=== PATIENT | female | born 1965 | race Caucasian/White ===

== ENCOUNTER 2019-02-12 12:41 | Emergency (ER) | payer BC, OTHER ==
[~2019-02-12] VITALS: Ht 175.3 cm; Wt 138.3 kg
[~2019-02-12 12:41] MED LIST: ACET500 PO; AMBIEN CR; ATEN50 PO; BRINTELLIX20 MG PO; BUPR100ER PO; CLON2 PO; CYCL10 PO; DILT180 PO; Estradiol1 MG PO; FLUO20; HYDROCHLOROTHIAZIDE; IBUP800; LEVA1.25 INH; LITH300C PO; MONT10T PO; NAPR550 PO; NUVIGIL250 MG PO; OXYACE5T PO; Omeprazole20 M1; PROPANOLOL; Robaxin500 MG PO; SERT100 PO; [UNRECOGNIZED DRUG - OTHER]
[2019-02-12] MEDS ORDERED: Percocet 5-3251 EACH PO (14:23)
[2019-02-12] MEDS ORDERED: Crutch1 EACH MISC (14:23)
== END 2019-02-12 14:41 | disposition home or self-care (01) ==
LOC: ER 12:41
DX: S82.62XA Displaced fracture of lateral malleolus of left fibula, initial encounter for closed fracture (principal); I10 Essential (primary) hypertension; Z88.0 Allergy status to penicillin; Z88.5 Allergy status to narcotic agent; Z79.899 Other long term (current) drug therapy; X50.1XXA Overexertion from prolonged static or awkward postures, initial encounter
CPT/HCPCS: 29505; 73610; 99283-25; A9270-GY

== ENCOUNTER 2020-08-27 20:41 | Emergency (ER) | payer BC ==
[~2020-08-27] VITALS: Ht 177.8 cm; Wt 131.5 kg
[~2020-08-27 20:41] MED LIST changes: +Crutch1 EACH MISC; +Percocet 5-3251 EACH PO
[2020-08-27 22:13] LABS: Source, Urine Clean Catch
[2020-08-27 22:17] LABS: Appearance, Urine Clear (Clear); Bilirubin, Urine Neg (Neg); Blood, Urine Neg (Neg); Color, Urine Amber (P-Yellow); Glucose Qualitative, Urine Neg (Neg); Ketones, Urine 4+ (Neg); Leukocyte Esterase, Urine 1+ (Neg); Nitrite, Urine Neg (Neg); Protein, Urine 2+ (Neg); Specific Gravity, Urine 1.015 (1.003-1.022); Urobilinogen, Urine 2+ (Normal)
[2020-08-27 22:23] LABS: Bacteria Many /hpf; Mucus Mod (0-Heavy); Squamous Epithelial Cells Few /hpf (Few)
[2020-08-27 22:25] LABS: BASOPHILS ABSOLUTE AUTO 0.03 K/mm3 (0.00-0.23); BASOPHILS PERCENT AUTO 0 % (0-2); EOSINOPHILS ABSOLUTE AUTO 0.02 K/mm3 (0.00-0.68); EOSINOPHILS PERCENT AUTO 0 % (0-6); Hematocrit 49.6 % (33.0-51.0); Hemoglobin 16.4 g/dL (11.5-16.0); IMMATURE GRAN ABSOLUTE AUTO 0.04 K/mm3 (0.00-0.10); IMMATURE GRAN PERCENT AUTO 0 % (0-1); LYMPHOCYTES ABSOLUTE AUTO 0.96 K/mm3 (0.84-5.20); LYMPHOCYTES PERCENT AUTO 8 % (21-46); MONOCYTES ABSOLUTE AUTO 0.55 K/mm3 (0.16-1.47); MONOCYTES PERCENT AUTO 5 % (4-13); Mean Corpuscular HGB 31.7 pg (26.0-34.0); Mean Corpuscular HGB Conc 33.1 g/dL (31.5-36.5); Mean Corpuscular Volume 96 fL (80-100); Mean Platelet Volume 11.4 fL (9.1-12.4); NEUTROPHILS ABSOLUTE AUTO 10.67 K/mm3 (1.96-9.15); NEUTROPHILS PERCENT AUTO 87 % (41-73); Platelet Count 273 K/mm3 (150-400); RDW Coefficient Variation 12.5 % (11.7-14.2); RDW Standard Deviation 44.5 fL (35.1-46.3); Red Blood Cell Count 5.18 M/mm3 (3.80-5.20); White Blood Cell Count 12.27 K/mm3 (4.00-11.30)
[2020-08-27 22:47] LABS: Alanine Aminotransfer (ALT/SGP 43 U/L (12-78); Albumin, Blood 4.1 g/dL (3.4-5.0); Albumin/Globulin Ratio 1.1 (0.8-1.8); Alk Phos 50 U/L (50-136); Anion Gap 6 mmol/L (6-16); Aspartate Aminotrans (AST/SGOT 18 U/L (12-37); Bilirubin, Total 0.6 mg/dL (0.1-1.0); Blood Urea Nitrogen 22 mg/dL (8-24); Bun/Creatinine Ratio 27.7 (12.0-20.0); CO2, Blood 29 mmol/L (21-32); Calcium, Blood 10.1 mg/dL (8.5-10.1); Chloride, Blood 103 mmol/L (98-108); Globulin, Blood 3.8 g/dL (2.2-4.0); Glomerular Filtration Rate >60 (60-); Glucose, Blood 160 mg/dL (70-99); Potassium, Blood 3.4 mmol/L (3.5-5.5); Sodium, Blood 138 mmol/L (136-145); Total Protein, Blood 7.9 g/dL (6.4-8.2)
[2020-08-28] MEDS ORDERED: ONDA4ODT MM (00:57)
== END 2020-08-28 01:30 | disposition home or self-care (01) ==
LOC: ER 20:41
PROVIDERS: Emergency Medicine
DX: K52.9 Noninfective gastroenteritis and colitis, unspecified (principal); I10 Essential (primary) hypertension; Z80.0 Family history of malignant neoplasm of digestive organs; Z88.5 Allergy status to narcotic agent; Z79.899 Other long term (current) drug therapy; Z88.0 Allergy status to penicillin; Z87.891 Personal history of nicotine dependence
CPT/HCPCS: 36415; 74177; 80053; 81001; 83690; 85025; 87086; 96374-59; 96375; 96376; 99285-25; A9270; J2270; J2405; Q9967

== ENCOUNTER 2023-02-14 14:08 | Emergency (ER) | payer OTHER ==
[~2023-02-14] VITALS: Ht 177.8 cm; Wt 140.6 kg
[~2023-02-14 14:08] MED LIST changes: +ONDA4ODT MM
[2023-02-14 14:55] LABS: BASOPHILS ABSOLUTE AUTO 0.03 K/mm3 (0.00-0.23); BASOPHILS PERCENT AUTO 0 % (0-2); EOSINOPHILS PERCENT AUTO 0 % (0-6); Hematocrit 37.8 % (33.0-51.0); Hemoglobin 12.5 g/dL (11.5-16.0); IMMATURE GRAN ABSOLUTE AUTO 0.04 K/mm3 (0.00-0.10); IMMATURE GRAN PERCENT AUTO 0 % (0-1); LYMPHOCYTES ABSOLUTE AUTO 1.35 K/mm3 (0.84-5.20); LYMPHOCYTES PERCENT AUTO 10 % (21-46); MONOCYTES ABSOLUTE AUTO 0.26 K/mm3 (0.16-1.47); MONOCYTES PERCENT AUTO 2 % (4-13); Mean Corpuscular HGB 32.3 pg (26.0-34.0); Mean Corpuscular HGB Conc 33.1 g/dL (31.5-36.5); Mean Corpuscular Volume 98 fL (80-100); Mean Platelet Volume 10.5 fL (9.1-12.4); NEUTROPHILS ABSOLUTE AUTO 12.02 K/mm3 (1.96-9.15); NEUTROPHILS PERCENT AUTO 88 % (41-73); Platelet Count 432 K/mm3 (150-400); RDW Coefficient Variation 12.5 % (11.7-14.2); RDW Standard Deviation 45.1 fL (35.1-46.3); Red Blood Cell Count 3.87 M/mm3 (3.80-5.20)
[2023-02-14 15:06] LABS: Albumin, Blood 2.6 g/dL (3.4-5.0); Albumin/Globulin Ratio 0.6 (0.8-1.8); Bilirubin, Total 0.7 mg/dL (0.1-1.0); Bun/Creatinine Ratio 13.5 (12.0-20.0); Calcium, Blood 8.8 mg/dL (8.5-10.1); Creatinine, Blood 0.67 mg/dL (0.40-1.00); Globulin, Blood 4.7 g/dL (2.2-4.0); Potassium, Blood 2.9 mmol/L (3.5-5.5); Total Protein, Blood 7.3 g/dL (6.4-8.2)
[2023-02-14 16:29] LABS: Influenza A, PCR NEGATIVE (NEGATIVE); Influenza B, PCR NEGATIVE (NEGATIVE); Resp Syncytial Virus, PCR NEGATIVE (NEGATIVE); SARS-Cov-2 (COVID-19) PCR, MMC NEGATIVE (NEGATIVE)
[2023-02-14 16:41] LABS: Source, Urine Clean Catch
[2023-02-14 17:28] LABS: Appearance, Urine Clear (Clear); Bilirubin, Urine Neg (Neg); Blood, Urine Neg (Neg); Color, Urine Yellow (P-Yellow); Glucose Qualitative, Urine Neg (Neg); Ketones, Urine Neg (Neg); Leukocyte Esterase, Urine Neg (Neg); Nitrite, Urine Neg (Neg); Protein, Urine 1+ (Neg); Urobilinogen, Urine NORM (Normal)
[2023-02-14] MEDS ORDERED: ONDA4ODT MM (18:07)
[2023-02-14 20:54] VITALS: BP 137/72
== END 2023-02-14 20:56 | disposition home or self-care (01) ==
LOC: ER 14:08
PROVIDERS: Emergency Medicine; Student in an Organized Health Care Education/Training Program
DX: R68.89 Other general symptoms and signs (principal); R68.83 Chills (without fever); I10 Essential (primary) hypertension; Z87.891 Personal history of nicotine dependence; Z88.0 Allergy status to penicillin; Z88.5 Allergy status to narcotic agent; Z79.899 Other long term (current) drug therapy
CPT/HCPCS: 0241U; 71045; 80053; 82947; 83605; 85025; 87040; 87184; 93005; 93010; 96360; 99284-25; A9270; J7030

== ENCOUNTER → 2023-03-18 | Outpatient (CLI) | payer OTHER ==
[~2023-03-18] MED LIST changes: +ZOLP12.5 PO
[2023-03-19 12:36] LABS: Adenovirus F 40/41 Not Detected (NOT DETECT); Astrovirus Not Detected (NOT DETECT); Campylobacter Sp Not Detected (NOT DETECT); Cryptosporidium Not Detected (NOT DETECT); Cyclospora Cayetanensis Not Detected (NOT DETECT); E. Coli O157 Not Detected (NOT DETECT); Entamoeba Histolytica Not Detected (NOT DETECT); Enteroaggregative E. coli-EAEC Not Detected (NOT DETECT); Enteropathogenic E. coli-EPEC Not Detected (NOT DETECT); Enterotoxigenic E. coli-ETEC Not Detected (NOT DETECT); Giardia Lamblia Not Detected (NOT DETECT); Norovirus GI/GII Not Detected (NOT DETECT); Plesiomonas Shigelloides Not Detected (NOT DETECT); Rotavirus A Not Detected (NOT DETECT); Salmonella Sp Not Detected (NOT DETECT); Sapovirus Not Detected (NOT DETECT); Shiga Toxin-prod E. coli-STEC Not Detected (NOT DETECT); Shigella/Enteroin E. coli-EIEC Not Detected (NOT DETECT); Vibrio Cholerae Not Detected (NOT DETECT); Vibrio Sp Not Detected (NOT DETECT); Yersinia Enterocolitica Not Detected (NOT DETECT)
== END ==
LOC: LAB 09:48 → LAB SHORT 09:48
PROVIDERS: Physician Assistant
DX: R19.7 Diarrhea, unspecified (principal)
CPT/HCPCS: 87507

== ENCOUNTER 2023-03-19 11:10 | Inpatient (IN) | payer OTHER ==
[2023-03-19] VITALS (21 sets, daily range): BP systolic 116–186; BP diastolic 58–144
[~2023-03-19] VITALS: Ht 177.8 cm; Wt 131.7 kg
[~2023-03-19 11:10] MED LIST changes: -ZOLP12.5 PO
[2023-03-19 11:55] LABS: BASOPHILS ABSOLUTE AUTO 0.03 K/mm3 (0.00-0.23); BASOPHILS PERCENT AUTO 0 % (0-2); EOSINOPHILS ABSOLUTE AUTO 0.05 K/mm3 (0.00-0.68); EOSINOPHILS PERCENT AUTO 1 % (0-6); Hematocrit 33.5 % (33.0-51.0); Hemoglobin 10.6 g/dL (11.5-16.0); IMMATURE GRAN ABSOLUTE AUTO 0.06 K/mm3 (0.00-0.10); IMMATURE GRAN PERCENT AUTO 1 % (0-1); LYMPHOCYTES ABSOLUTE AUTO 1.17 K/mm3 (0.84-5.20); LYMPHOCYTES PERCENT AUTO 13 % (21-46); MONOCYTES ABSOLUTE AUTO 0.92 K/mm3 (0.16-1.47); MONOCYTES PERCENT AUTO 10 % (4-13); Mean Corpuscular HGB 30.2 pg (26.0-34.0); Mean Corpuscular HGB Conc 31.6 g/dL (31.5-36.5); Mean Corpuscular Volume 95 fL (80-100); Mean Platelet Volume 10.5 fL (9.1-12.4); NEUTROPHILS ABSOLUTE AUTO 6.91 K/mm3 (1.96-9.15); NEUTROPHILS PERCENT AUTO 76 % (41-73); Platelet Count 407 K/mm3 (150-400); RDW Coefficient Variation 12.7 % (11.7-14.2); Red Blood Cell Count 3.51 M/mm3 (3.80-5.20); White Blood Cell Count 9.14 K/mm3 (4.00-11.30)
[2023-03-19 12:18] LABS: Albumin, Blood 2.5 g/dL (3.4-5.0); Albumin/Globulin Ratio 0.5 (0.8-1.8); Bilirubin, Total 0.6 mg/dL (0.1-1.0); Bun/Creatinine Ratio 16.9 (12.0-20.0); Calcium, Blood 9.2 mg/dL (8.5-10.1); Creatinine, Blood 0.53 mg/dL (0.40-1.00); Globulin, Blood 4.7 g/dL (2.2-4.0); Potassium, Blood 3.4 mmol/L (3.5-5.5); Total Protein, Blood 7.2 g/dL (6.4-8.2)
[2023-03-19 14:02] LABS: Source, Urine Clean Catch
[2023-03-19 14:23] LABS: Appearance, Urine Clear (Clear); Bilirubin, Urine Neg (Neg); Blood, Urine 1+ (Neg); Color, Urine Yellow (P-Yellow); Glucose Qualitative, Urine Neg (Neg); Ketones, Urine 1+ (Neg); Leukocyte Esterase, Urine Neg (Neg); Nitrite, Urine Neg (Neg); Protein, Urine 2+ (Neg); Urobilinogen, Urine NORM (Normal)
[2023-03-19 15:02] LABS: Amorphous Light (0-Heavy); Bacteria Mod /hpf; Red Blood Cells, Urine 0-2 /hpf (0-2); Squamous Epithelial Cells Rare /hpf (Few); White Blood Cells, Urine 0-2 /hpf (0-5)
--- NOTE | 2023-03-19 16:18 | NUR ---
PATIENT ARRIVED FROM ER TODAY. SHE IS A&OX4. SBP IS ELEVATED BUT OTHERWISE VS ARE WNL. PATIENT REPORTS A 5/10 PAIN AT THIS TIME. HER RLQ ABD IS TENDER TO PALPATE. SHE DENIES NAUSEA OR VOMITING AT THIS TIME. PATIENT WAS ABLE TO STAND AND TRANSFER FROM THE GURNEY TO THE BED A SBA. PATIENT IS NPO SINCE SHE WILL HAVE SURGERY TONIGHT WITH DR. VELAZQUEZ. SHE IS CURRENTLY LAYING IN BED WITH CALL LIGHT IN REACH.
[2023-03-19] MEDS ORDERED: ZOLP12.5 PO (16:59)
[2023-03-20 01:04] VITALS: BP 146/86
[2023-03-20 02:02] VITALS: BP 130/67
[2023-03-20 03:51] VITALS: BP 121/66
[2023-03-20 05:46] LABS: Hematocrit 31.4 % (33.0-51.0); Hemoglobin 10.3 g/dL (11.5-16.0); Mean Corpuscular HGB 30.4 pg (26.0-34.0); Mean Corpuscular HGB Conc 32.8 g/dL (31.5-36.5); Mean Corpuscular Volume 93 fL (80-100); RDW Coefficient Variation 13.2 % (11.7-14.2); RDW Standard Deviation 45.1 fL (35.1-46.3); Red Blood Cell Count 3.39 M/mm3 (3.80-5.20); White Blood Cell Count 16.93 K/mm3 (4.00-11.30)
[2023-03-20 06:00] LABS: BAND PERCENT MAN 17 % (0-8); BASOPHILS PERCENT MAN 0 % (0-2); EOSINOPHILS PERCENT MAN 0 % (0-6); LYMPHOCYTES PERCENT MAN 3 % (21-46); MONOCYTES ABSOLUTE MAN 1.52 K/mm3 (0.16-1.47); MONOCYTES PERCENT MAN 9 % (4-13); NEUTROPHILS ABSOLUTE MAN 14.89 K/mm3 (1.96-9.15); SEG NEUTROPHILS PERCENT MAN 71 % (41-73); TOTAL CELLS COUNTED 100
[2023-03-20 06:01] LABS: Mean Platelet Volume 10.9 fL (9.1-12.4); Platelet Count 354 K/mm3 (150-400)
[2023-03-20 06:07] LABS: Albumin, Blood 1.9 g/dL (3.4-5.0); Albumin/Globulin Ratio 0.4 (0.8-1.8); Bilirubin, Total 1.5 mg/dL (0.1-1.0); Bun/Creatinine Ratio 16.3 (12.0-20.0); Calcium, Blood 7.8 mg/dL (8.5-10.1); Creatinine, Blood 0.62 mg/dL (0.40-1.00); Globulin, Blood 4.3 g/dL (2.2-4.0); Potassium, Blood 3.7 mmol/L (3.5-5.5); Total Protein, Blood 6.2 g/dL (6.4-8.2)
--- NOTE | 2023-03-20 06:53 | NUR ---
SHIFT SUMMARY PT IS POD#1 FROM A LAPAROSCOPIC CHOLECYSTECTOMY THAT PROGRESSED TO AN OPEN CHOLECYSTECTOMY DUE TO THE PT HAVING A GANGRENOUS GALLBLADDER. TWO PAOLA DRAINS WERE PLACED TO THE RIGHT OF THE PT'S UMBILICUS AND A REEMA DRESSING WAS PLACED ON THE DIAGONAL INCISION ON THE PT'S ABDOMEN. PT'S VITAL SIGNS HAVE BEEN STABLE THROUGHOUT THE SHIFT AND HER PAIN HAS BEEN CONTROLLED VIA THE EMAR. PT HAS BEEN UP AND WAS ABLE TO VOID AT THE BEDSIDE COMMODE WITHOUT INCIDENT. NEW IV PLACED BY PCU CN IN THE PT'S LEFT FOREARM DUE TO BOTH HER BILATERAL AC IV'S BLOWING. ALL PT INCISION ARE C/D/I AND THE REEMA DRAIN IS WORKING PROPERLY AT THIS TIME. BED IS IN LOWEST POSITION, CALL LIGHT IS WITHIN REACH.
[2023-03-20 07:19] VITALS: BP 105/66
[2023-03-20 15:51] VITALS: BP 114/68
--- NOTE | 2023-03-20 18:53 | NUR ---
SHIFT SUMMARY POD1 LAP TO OPEN ARIC, Bhupinder/OX4, VSS, TOLERATING PO THOUGH SHE HAS HAD A POOR APPETITE TODAY, SHE REPORTS FEELING WEAK AND THAT SHE DOESN'T FEEL LIKE SHE SI ABLE TO WALK VERY FAR, USEING BSC. IV ABX INFUSING ORDERED. IV DRESSING CHANGED 2X THIS SHIFT DUE TO IT PEELING UP. NO ACUTE EVENTS THIS SHIFT, CALL LIGHT IN REACH.
[2023-03-20 19:37] VITALS: BP 149/75
[2023-03-21 03:25] VITALS: BP 150/75
[2023-03-21 07:18] VITALS: BP 146/82
--- NOTE | 2023-03-21 07:25 | NUR ---
SHIFT SUMMARY NOC. PT A/O X4. PT MEDICATED FOR PAIN X2 WITH RELIEF. LAP SITES X3 WITH 2 PAOLA DRAINS ARE C/D/I. PRODUCED 105 ML OF S/S DRAINAGE. PT VOIDING URINE. PT RESTED WITH EYES CLOSED AND CALL LIGHT IN REACH.
[2023-03-21 15:02] VITALS: BP 143/78
--- NOTE | 2023-03-21 19:04 | NUR ---
SHIFT SUMMARY POD2 LAP TO OPEN Bhupinder CORBETT/ALEK4, VSS, TOLERATING PO BUT SHE HAS BEEN HAVING POOR INTAKE, PAIN MANAGED PER EMAR, SHE SPENT SOME TIME UP TO THE CHAIR TODAY FOR BREAKFAST AND LUNCH BUT HAS NOT BEEN AMBULATING OUTSIDE OF STAND PIVOT TRANSFERS. NO ACUTE EVENTS THIS SHIFT, CALL LIGHT IN REACH.
[2023-03-21 19:37] VITALS: BP 138/79
--- NOTE | 2023-03-22 04:42 | NUR ---
SHIFT SUMMARY NOC. PT POD 3 FOR GANGRENOUS CHOLECYSTITIS. PT A/O X4 AND AMBULATED TO BEDSIDE COMMODE THIS SHIFT TO VOID URINE. PT REPORTED PASSING GAS THIS SHIFT. PT MEDICATED FOR PAIN X2 WITH RELIEF OF SX. PT MEDICATED FOR SLEEP WITH AMBIEN. LAP SITES X3 WITH 2 PAOLA DRAINS ARE C/D/I. PAOLA DRAINS PRODUCING SEROSANGUINOUS DRAINAGE. ABDOMINAL REEMA DRESSING IS COMPRESSED AND C/D/I. PT RESTED WITH EYES CLOSED AND CALL LIGHT IN REACH.
[2023-03-22 04:52] VITALS: BP 118/69
[2023-03-22 05:48] LABS: BASOPHILS ABSOLUTE AUTO 0.03 K/mm3 (0.00-0.23); BASOPHILS PERCENT AUTO 0 % (0-2); EOSINOPHILS ABSOLUTE AUTO 0.31 K/mm3 (0.00-0.68); EOSINOPHILS PERCENT AUTO 2 % (0-6); Hematocrit 25.9 % (33.0-51.0); Hemoglobin 7.9 g/dL (11.5-16.0); IMMATURE GRAN ABSOLUTE AUTO 0.09 K/mm3 (0.00-0.10); IMMATURE GRAN PERCENT AUTO 1 % (0-1); LYMPHOCYTES ABSOLUTE AUTO 1.38 K/mm3 (0.84-5.20); LYMPHOCYTES PERCENT AUTO 11 % (21-46); MONOCYTES ABSOLUTE AUTO 0.76 K/mm3 (0.16-1.47); MONOCYTES PERCENT AUTO 6 % (4-13); Mean Corpuscular HGB Conc 30.5 g/dL (31.5-36.5); Mean Platelet Volume 10.9 fL (9.1-12.4); NEUTROPHILS ABSOLUTE AUTO 10.48 K/mm3 (1.96-9.15); NEUTROPHILS PERCENT AUTO 80 % (41-73); Platelet Count 352 K/mm3 (150-400); RDW Coefficient Variation 13.2 % (11.7-14.2); Red Blood Cell Count 2.63 M/mm3 (3.80-5.20); White Blood Cell Count 13.05 K/mm3 (4.00-11.30)
[2023-03-22 06:24] LABS: Mean Corpuscular Volume 99 fL (80-100)
[2023-03-22 06:27] LABS: Albumin, Blood 1.6 g/dL (3.4-5.0); Albumin/Globulin Ratio 0.4 (0.8-1.8); Bilirubin, Total 0.3 mg/dL (0.1-1.0); Bun/Creatinine Ratio 9.2 (12.0-20.0); Calcium, Blood 8.3 mg/dL (8.5-10.1); Creatinine, Blood 0.55 mg/dL (0.40-1.00); Potassium, Blood 3.4 mmol/L (3.5-5.5); Total Protein, Blood 5.6 g/dL (6.4-8.2)
[2023-03-22 08:07] VITALS: BP 131/86
--- NOTE | 2023-03-22 11:33 | NUR ---
DR VELAZQUEZ IN TO SEE PT.
[2023-03-22 16:02] VITALS: BP 139/84
--- NOTE | 2023-03-22 16:55 | NUR ---
summary NO ACUTE CHANGES THIS SHIFT. PT SAT UP IN CHAIR PERIODICALLY T/O DAY. PT WEAK, WORKED WITH PT THIS AFTERNOON. GETS UP WITH 1 PERSON ASSIST TO CHAIR AND BSC. WEANED OFF 02 THIS AFTERNOON, GAVE PT IS AND INSTRUCTED ON USE EARLIER IN SHIFT. PT USES CALL LIGHT APPROPRIATELY/CALL LIGHT IN REACH.
[2023-03-22 19:35] VITALS: BP 157/78
[2023-03-23 03:30] VITALS: BP 151/92
--- NOTE | 2023-03-23 04:16 | NUR ---
SHIFT SUMMARY PT RESTED WELL T/O NIGHT. INDEP TO BSC. REEMA DRESSING TO ABD REMAINS CDI AND COMPRESSED. PAOLA DRAIN #1 WITH MORE OUTPUT THAN #2. BOTH DARK GREEN IN APPEARANCE. PT REPORTS FLATUS. DENIES N/V. MEDICATED FOR PAIN X1. USES CALL LIGHT APPROPRIATELY.
--- NOTE | 2023-03-23 07:21 | NUR ---
OOB TO CHAIR, REPORTS PAIN HAS BEEN "GOOD" REPORTS AMBULATING INDEPENDENTLY AND PASSING FLATUS, DAVID DIET FAIRLY WELL, PT TEACHING DONE ON PAOLA DRAIN CARE, DENIES ANY SOB, CONT. TO MONITOR FOR ANY CHANGES.
[2023-03-23 07:31] VITALS: BP 166/82
[2023-03-23 15:11] VITALS: BP 147/91
--- NOTE | 2023-03-23 15:40 | NUR ---
Pt. is awake in bed when she welcomes my visit. Pt. is pleasant, but displays evidence of abdominal discomfort especially when she coughs. Facilitate a life review and listen with interest and empathy. Pt. displays evidence of being engaged and aware. Pt. verbalized an expectation that she would discharge home tomorrow. Prayed with Pt. Pt. verbalized gratitude for the spiritual care visit.
--- NOTE | 2023-03-23 16:23 | NUR ---
PT TOOK A SHOWER THIS AFTERNOON, TOLERATED WELL, WARM SALT WATER MOUTH RINSE DONE PER DENTAL HYGIENIST'S INSTRUCTIONS.
--- NOTE | 2023-03-23 17:10 | NUR ---
SUMMARY C/O NAUSEA THIS AM, STATES SHE WAS "GAGGING" ON HER DENTURES, REPORTS NAUSEA WAS BETTER AFTER DRINKING PEPPERMINT TEA, TYLENOL AND TORADOL GIVEN FOR INCISIONAL PAIN, OOB TO CHAIR, AMBULATES INDEPENDENTLY TO THE BATHROOM, ENCOURAGED TO AMBULATE DOWN THE HALLS BUT PT HAS REFUSED, TOOK A SHOWER TODAY, PAOLA DRAIN X2 CONT. TO DRAIN DARK TEA COLORED DRAINAGE, PT TEACHING DONE ON DRAIN CARE, NO ACUTE CHANGES THIS SHIFT.
[2023-03-23 19:16] VITALS: BP 162/71
[2023-03-24 02:03] VITALS: BP 160/86
--- NOTE | 2023-03-24 05:17 | NUR ---
SHIFT SUMMARY NO ACUTE CHANGES. PT RESTED WELL T/O SHIFT. 1 ROXICODONE + TYLENOL FOR PAIN CONTROL. REEMA DRESSING REMAINS UNCHANGED. PAOLA #1 PRODUCING MODERATE DRAINAGE COMPARED TO PAOLA #2. PT REPORTS FLATUS. INDEP IN ROOM. NO BM YET. USES CALL LIGHT APPROPRIATELY.
[2023-03-24 06:48] LABS: BASOPHILS ABSOLUTE AUTO 0.06 K/mm3 (0.00-0.23); BASOPHILS PERCENT AUTO 1 % (0-2); EOSINOPHILS ABSOLUTE AUTO 0.28 K/mm3 (0.00-0.68); EOSINOPHILS PERCENT AUTO 3 % (0-6); Hematocrit 27.5 % (33.0-51.0); Hemoglobin 8.6 g/dL (11.5-16.0); IMMATURE GRAN ABSOLUTE AUTO 0.27 K/mm3 (0.00-0.10); IMMATURE GRAN PERCENT AUTO 3 % (0-1); LYMPHOCYTES ABSOLUTE AUTO 1.54 K/mm3 (0.84-5.20); LYMPHOCYTES PERCENT AUTO 16 % (21-46); MONOCYTES ABSOLUTE AUTO 0.96 K/mm3 (0.16-1.47); MONOCYTES PERCENT AUTO 10 % (4-13); Mean Corpuscular HGB 30.1 pg (26.0-34.0); Mean Corpuscular HGB Conc 31.3 g/dL (31.5-36.5); Mean Corpuscular Volume 96 fL (80-100); Mean Platelet Volume 10.2 fL (9.1-12.4); NEUTROPHILS ABSOLUTE AUTO 6.67 K/mm3 (1.96-9.15); NEUTROPHILS PERCENT AUTO 68 % (41-73); NRBC ABSOLUTE 0.02 K/mm3 (0.00-0.02); NRBC Auto 0.2 /100 WBC (0.0-0.2); Platelet Count 475 K/mm3 (150-400); RDW Coefficient Variation 13.2 % (11.7-14.2); RDW Standard Deviation 46.2 fL (35.1-46.3); Red Blood Cell Count 2.86 M/mm3 (3.80-5.20); White Blood Cell Count 9.78 K/mm3 (4.00-11.30)
[2023-03-24 07:10] LABS: Albumin, Blood 1.7 g/dL (3.4-5.0); Albumin/Globulin Ratio 0.4 (0.8-1.8); Bilirubin, Total 0.4 mg/dL (0.1-1.0); Bun/Creatinine Ratio 7.7 (12.0-20.0); Calcium, Blood 8.6 mg/dL (8.5-10.1); Creatinine, Blood 0.52 mg/dL (0.40-1.00); Globulin, Blood 4.3 g/dL (2.2-4.0); Potassium, Blood 3.1 mmol/L (3.5-5.5)
[2023-03-24 07:32] VITALS: BP 160/91
[2023-03-24 14:32] VITALS: BP 161/92
--- NOTE | 2023-03-24 17:30 | NUR ---
discharge pod 5 open daniela pt ambulating well in room, pain well controlled per emar. stephanie drains continue to have high output today. dressings changed prior to discharge, education provided on emptying drains pt verbalized understanding. midline urmila discontinued and medipore placed. incision cdi, no redness around. script sent with patient. no further questions at this time.
== END 2023-03-24 17:26 | disposition home or self-care (01) | DRG 415 ==
LOC: ER 11:10 → SURS 14:40
PROVIDERS: Student in an Organized Health Care Education/Training Program; ADMIT Surgery
PROC: 0FT40ZZ Resection of Gallbladder, Open Approach (ICD-10-PCS; principal; 2023-03-19 17:30)
PROC: 0FJ44ZZ Inspection of Gallbladder, Percutaneous Endoscopic Approach (ICD-10-PCS; 2023-03-19 17:30)
DX: K80.00 Calculus of gallbladder with acute cholecystitis without obstruction (principal); D62 Acute posthemorrhagic anemia; K82.A1 Gangrene of gallbladder in cholecystitis; F31.9 Bipolar disorder, unspecified; F41.9 Anxiety disorder, unspecified; I10 Essential (primary) hypertension; Z87.891 Personal history of nicotine dependence; Z28.21 Immunization not carried out because of patient refusal; R10.11 Right upper quadrant pain; R50.9 Fever, unspecified; R19.7 Diarrhea, unspecified
CPT/HCPCS: 36415; 74160; 76705; 80053; 81001; 81025; 83690; 84443; 85025; 87040; 87086; 87507; 88304; 94760; 94762; 96365; 96375; 97110; 97161; 99284-25; A9270; J0696; J0744; J0780; J1170; J1650; J1885; J2250; J2405; J2704; J3010; J7030; Q9967

== ENCOUNTER 2023-03-26 23:48 | Emergency (ER) | payer OTHER ==
[~2023-03-26] VITALS: Ht 177.8 cm; Wt 124.7 kg
[~2023-03-26 23:48] MED LIST changes: +ZOLP12.5 PO
[2023-03-27 02:50] LABS: Albumin, Blood 2.3 g/dL (3.4-5.0); Albumin/Globulin Ratio 0.5 (0.8-1.8); Bilirubin, Total 0.3 mg/dL (0.1-1.0); Calcium, Blood 8.8 mg/dL (8.5-10.1); Creatinine, Blood 0.6 mg/dL (0.40-1.00); Globulin, Blood 4.7 g/dL (2.2-4.0); Potassium, Blood 2.9 mmol/L (3.5-5.5)
[2023-03-27 03:01] LABS: BASOPHILS ABSOLUTE AUTO 0.06 K/mm3 (0.00-0.23); BASOPHILS PERCENT AUTO 1 % (0-2); EOSINOPHILS ABSOLUTE AUTO 0.06 K/mm3 (0.00-0.68); EOSINOPHILS PERCENT AUTO 1 % (0-6); Hematocrit 33.1 % (33.0-51.0); Hemoglobin 10.4 g/dL (11.5-16.0); IMMATURE GRAN ABSOLUTE AUTO 0.31 K/mm3 (0.00-0.10); IMMATURE GRAN PERCENT AUTO 2 % (0-1); LYMPHOCYTES ABSOLUTE AUTO 1.91 K/mm3 (0.84-5.20); LYMPHOCYTES PERCENT AUTO 15 % (21-46); MONOCYTES ABSOLUTE AUTO 0.93 K/mm3 (0.16-1.47); MONOCYTES PERCENT AUTO 7 % (4-13); Mean Corpuscular HGB 29.9 pg (26.0-34.0); Mean Corpuscular HGB Conc 31.4 g/dL (31.5-36.5); Mean Corpuscular Volume 95 fL (80-100); Mean Platelet Volume 10.2 fL (9.1-12.4); NEUTROPHILS ABSOLUTE AUTO 9.43 K/mm3 (1.96-9.15); NEUTROPHILS PERCENT AUTO 74 % (41-73); Platelet Count 636 K/mm3 (150-400); RDW Coefficient Variation 14.4 % (11.7-14.2); RDW Standard Deviation 47.2 fL (35.1-46.3); Red Blood Cell Count 3.48 M/mm3 (3.80-5.20)
[2023-03-27 07:33] VITALS: BP 187/100
== END 2023-03-27 07:41 | disposition home or self-care (01) ==
LOC: ER 23:48
PROVIDERS: Physician Assistant
DX: T85.838A Hemorrhage due to other internal prosthetic devices, implants and grafts, initial encounter (principal); Z90.49 Acquired absence of other specified parts of digestive tract; I10 Essential (primary) hypertension; Y71.2 Prosthetic and other implants, materials and accessory cardiovascular devices associated with adverse incidents; F31.9 Bipolar disorder, unspecified; Z87.891 Personal history of nicotine dependence; Z79.899 Other long term (current) drug therapy; Z88.0 Allergy status to penicillin; Z88.5 Allergy status to narcotic agent
CPT/HCPCS: 80053; 83690; 83735; 85025; 96365; 96366; 99283-25; A9270; J3480; J7030

== ENCOUNTER → 2024-05-03 | Outpatient (CLI) | payer OTHER ==
[2024-05-03 13:56] LABS: BASOPHILS ABSOLUTE AUTO 0.04 K/mm3 (0.00-0.23); BASOPHILS PERCENT AUTO 1 % (0-2); EOSINOPHILS ABSOLUTE AUTO 0.08 K/mm3 (0.00-0.68); EOSINOPHILS PERCENT AUTO 1 % (0-6); Hematocrit 44.2 % (33.0-51.0); Hemoglobin 14.9 g/dL (11.5-16.0); IMMATURE GRAN ABSOLUTE AUTO 0.02 K/mm3 (0.00-0.10); IMMATURE GRAN PERCENT AUTO 0 % (0-1); LYMPHOCYTES ABSOLUTE AUTO 1.84 K/mm3 (0.84-5.20); LYMPHOCYTES PERCENT AUTO 28 % (21-46); MONOCYTES PERCENT AUTO 8 % (4-13); Mean Corpuscular HGB 33.1 pg (26.0-34.0); Mean Corpuscular HGB Conc 33.7 g/dL (31.5-36.5); Mean Corpuscular Volume 98 fL (80-100); Mean Platelet Volume 10.4 fL (9.1-12.4); NEUTROPHILS ABSOLUTE AUTO 4.22 K/mm3 (1.96-9.15); NEUTROPHILS PERCENT AUTO 63 % (41-73); Platelet Count 248 K/mm3 (150-400); RDW Coefficient Variation 12.3 % (11.7-14.2); RDW Standard Deviation 44.3 fL (35.1-46.3)
[2024-05-03 14:08] LABS: Albumin, Blood 3.3 g/dL (3.4-5.0); Albumin/Globulin Ratio 0.8 (0.8-1.8); Bilirubin, Total 0.4 mg/dL (0.1-1.0); Bun/Creatinine Ratio 15.4 (12.0-20.0); Calcium, Blood 8.8 mg/dL (8.5-10.1); Creatinine, Blood 0.78 mg/dL (0.40-1.00); Globulin, Blood 4.2 g/dL (2.2-4.0); Potassium, Blood 4.1 mmol/L (3.5-5.5); Total Protein, Blood 7.5 g/dL (6.4-8.2)
== END ==
LOC: LAB 13:52 → LAB SHORT 13:52
PROVIDERS: Physician Assistant
DX: R10.9 Unspecified abdominal pain (principal)
CPT/HCPCS: 80053; 85025